=== PATIENT | female | born 2000 | race Two or more races ===

== ENCOUNTER 2022-07-13 12:50 | Emergency (ER) | payer MEDICAID, OTHER ==
[~2022-07-13] VITALS: Ht 165.1 cm; Wt 72.0 kg
[~2022-07-13 12:50] MED LIST: ANTI14DR4 RIGHT EAR
[2022-07-13 13:03] VITALS: BP 117/80
[2022-07-13] MEDS ORDERED: bacitracin 15gm ointment TP ONE (14:30)
== END 2022-07-13 15:06 | disposition home or self-care (01) ==
LOC: ER 12:51
DX: S80.212A Abrasion, left knee, initial encounter (principal); V19.9XXA Pedal cyclist (driver) (passenger) injured in unspecified traffic accident, initial encounter; Y93.89 Activity, other specified; Y92.89 Other specified places as the place of occurrence of the external cause; Y99.8 Other external cause status
CPT/HCPCS: 99282; A6449

== ENCOUNTER 2024-05-11 13:15 | Emergency (ER) | payer MEDICAID ==
[~2024-05-11] VITALS: Ht 152.4 cm; Wt 95.5 kg
[~2024-05-11 13:15] MED LIST changes: -ANTI14DR4 RIGHT EAR; +DIVA250T8 PO; +NO HOME MEDS; +PALI3TAB5 PO
[2024-05-11] MEDS: diphenhydrAMINE 50 mg/ml inj IM ONE (14:29)
[2024-05-11] MEDS: haloperidol lactate 5mg/ml inj IM ONE (14:30)
[2024-05-11] MEDS: LORazepam 2 mg/ml vial IM ONE (14:30)
[2024-05-11 14:58] LABS: BASOPHILS # (AUTO) 0.1 X10'3 (0-0.2); BASOPHILS % (AUTO) 0.8 % (0-1); EOSINOPHILS # (AUTO) 0.3 X10'3 (0-0.9); EOSINOPHILS % (AUTO) 2.5 % (0-6); HEMOGLOBIN 12.6 g/dl (12.0-16.0); LYMPHOCYTES # (AUTO) 1.9 X10'3 (1.1-4.8); LYMPHOCYTES % (AUTO) 16.3 % (21-51); MEAN CORPUSCULAR HEMOGLOBIN 29.5 PG (27.0-31.0); MEAN CORPUSCULAR HGB CONC 33.1 g/dL (33.0-36.5); MEAN CORPUSCULAR VOLUME 89.1 FL (78-98); MEAN PLATELET VOLUME 9.5 FL (7.4-10.4); MONOCYTES # (AUTO) 1.3 X10'3 (0-0.9); MONOCYTES % (AUTO) 11.3 % (2-12); NEUTROPHILS % (AUTO) 69.1 % (42-75); PLATELET COUNT 314 X10'3 (140-440); RED BLOOD COUNT 4.27 X10'6 (4.20-5.60); RED CELL DISTRIBUTION WIDTH 14.1 % (11.5-14.5); WHITE BLOOD COUNT 11.6 X10'3 (4.5-11.0)
[2024-05-11 15:20] LABS: ALBUMIN 3.9 G/DL (3.4-5.0); ANION GAP 11 (8-16); BLOOD UREA NITROGEN 13 MG/DL (7-18); BUN/CREATININE RATIO 14.8 (10.0-20.0); CALCIUM 8.4 MG/DL (8.5-10.1); CHLORIDE 105 MMOL/L (99-107); CREATININE 0.88 MG/DL (0.40-0.90); ETHANOL < 10 MG/DL (<10); GLUCOSE 115 MG/DL (70-104); POTASSIUM 3.6 MMOL/L (3.5-5.1); SODIUM 140 MMOL/L (135-145); TOTAL CARBON DIOXIDE 24.1 MMOL/L (24-32); eCRCL 70 ML/MIN; eGFR 78 ML/MIN
[2024-05-11] MEDS ORDERED: DIVA-81 PO (16:06)
[2024-05-11] MEDS ORDERED: PALI3TAB PO (16:06)
[2024-05-12] MEDS: divalproex sod 250mg ER (24-hour) tablet PO SCH (09:44)
[2024-05-12] MEDS: PALIPERIDONE 3 MG TAB.ER.24 PO SCH (09:44)
[2024-05-12] MEDS: levoTHYROXINE 75mcg tablet PO SCH (09:44)
[2024-05-12 13:37] LABS: BILIRUBIN,URINE NEGATIVE (Neg); CLARITY,URINE CLEAR (Clear); COLOR,URINE YELLOW (Yellow); GLUCOSE, URINE NEGATIVE (Neg); KETONES,URINE NEGATIVE (Neg); LEUKOCYTE ESTERASE ,URINE NEGATIVE (Neg); NITRITES, URINE NEGATIVE (Neg); OCCULT BLOOD,URINE NEGATIVE (Neg); PH,URINE 6.5 (4.8-8.0); PROTEIN,URINE NEGATIVE (Neg); UROBILINOGEN,URINE 0.2 E.U/dL (0.2-1.0)
[2024-05-12 13:41] LABS: UA COLLECTION TYPE VOIDED
[2024-05-12 13:42] LABS: URINE HCG NEGATIVE (NEG)
[2024-05-12 13:54] LABS: URINE AMPHETAMINE SCREEN NEGATIVE (Neg); URINE BARBITUATE SCREEN NEGATIVE (Neg); URINE BENZODIAZEPINES SCREEN NEGATIVE (Neg); URINE CANNABINOID SCREEN NEGATIVE (Neg); URINE COCAINE SCREEN NEGATIVE (Neg); URINE METHADONE SCREEN NEGATIVE (Neg); URINE OPIATE SCREEN NEGATIVE (Neg); URINE PHENCYCLIDINE SCREEN NEGATIVE (Neg)
[2024-05-12] MEDS: LORazepam 1 MG tablet PO ONE (18:55)
[2024-05-12] MEDS: OLANZapine 5mg rapidly disint. tablet PO ONE (18:56)
[2024-05-13] MEDS: LORazepam 1 MG tablet PO ONE (20:50)
[2024-05-13] MEDS: OLANZapine 5mg rapidly disint. tablet PO ONE (20:51)
[2024-05-14 05:31] VITALS: BP 112/64; PULSE 84; TEMP 96.8; O2SAT 99
[2024-05-14 08:05] VITALS: RESP 16
[2024-05-14 16:56] LABS: FREE T4 (FREE THYROXINE) 0.87 NG/DL (0.73-1.40)
== END 2024-05-14 17:55 ==
LOC: ER 13:16
DX: F20.1 Disorganized schizophrenia (principal); E03.9 Hypothyroidism, unspecified; F22 Delusional disorders; Z20.822 Contact with and (suspected) exposure to COVID-19; Z79.899 Other long term (current) drug therapy
CPT/HCPCS: 36415; 80048; 80305; 80320; 81003; 81025; 84439; 84443; 85025; 87811; 93005; 96372; 99285; J1200; J1630; J2060

== ENCOUNTER 2024-07-07 19:27 | Emergency (ER) | payer MEDICAID ==
[~2024-07-07] VITALS: Ht 165.1 cm; Wt 97.3 kg
[~2024-07-07 19:27] MED LIST changes: +DIVA-81 PO; -NO HOME MEDS; +PALI3TAB PO
[2024-07-07 19:54] LABS: BASOPHILS % (AUTO) 0.6 % (0-1); EOSINOPHILS % (AUTO) 0.6 % (0-6); HEMATOCRIT 37.7 % (35.0-45.0); HEMOGLOBIN 12.7 g/dl (12.0-16.0); LYMPHOCYTES # (AUTO) 1.5 X10'3 (1.1-4.8); LYMPHOCYTES % (AUTO) 21.9 % (21-51); MEAN CORPUSCULAR HEMOGLOBIN 29.6 PG (27.0-31.0); MEAN CORPUSCULAR HGB CONC 33.6 g/dL (33.0-36.5); MEAN CORPUSCULAR VOLUME 88.3 FL (78-98); MEAN PLATELET VOLUME 9.5 FL (7.4-10.4); MONOCYTES # (AUTO) 0.7 X10'3 (0-0.9); NEUTROPHILS # (AUTO) 4.7 X10'3 (1.8-7.7); NEUTROPHILS % (AUTO) 66.9 % (42-75); PLATELET COUNT 202 X10'3 (140-440); RED BLOOD COUNT 4.27 X10'6 (4.20-5.60); RED CELL DISTRIBUTION WIDTH 14.4 % (11.5-14.5)
[2024-07-07 20:17] LABS: SALICYLATE 1.5 MG/DL (4.0-20.0); THYROID STIMULATING HORMONE 2.96 ulU/ml (0.34-4.50)
[2024-07-07] MEDS ORDERED: PALI6TAB PO (20:19)
[2024-07-07 20:20] LABS: ACETAMINOPHEN < 2.0 UG/ML (10-30)
[2024-07-07 20:21] LABS: ETHANOL < 10 MG/DL (<10)
[2024-07-07 20:27] LABS: URINE HCG NEGATIVE (NEG)
[2024-07-07 20:28] LABS: BILIRUBIN,URINE SMALL (Neg); CLARITY,URINE CLEAR (Clear); COLOR,URINE YELLOW (Yellow); GLUCOSE, URINE NEGATIVE (Neg); KETONES,URINE 40 mg/dl (Neg); LEUKOCYTE ESTERASE ,URINE NEGATIVE (Neg); NITRITES, URINE NEGATIVE (Neg); OCCULT BLOOD,URINE TRACE-INTACT (Neg); PH,URINE 6.5 (4.8-8.0); PROTEIN,URINE NEGATIVE (Neg); UROBILINOGEN,URINE 0.2 E.U/dL (0.2-1.0)
[2024-07-07 20:43] LABS: UA COLLECTION TYPE NON-SPECIFIED; URINE AMPHETAMINE SCREEN NEGATIVE (Neg); URINE BARBITUATE SCREEN NEGATIVE (Neg); URINE BENZODIAZEPINES SCREEN NEGATIVE (Neg); URINE CANNABINOID SCREEN NEGATIVE (Neg); URINE COCAINE SCREEN NEGATIVE (Neg); URINE METHADONE SCREEN NEGATIVE (Neg); URINE OPIATE SCREEN NEGATIVE (Neg); URINE PHENCYCLIDINE SCREEN NEGATIVE (Neg)
[2024-07-07 20:44] LABS: BACTERIA,URINE FEW /HPF (Neg); RBC,URINE 0-2 /HPF (0-2); SQUAMOUS EPITHELIAL CELL,UR FEW /LPF (FEW); WBC,URINE 0-4 /HPF (0-4)
[2024-07-07 23:15] VITALS: BP 113/76; PULSE 72; TEMP 97.4; O2SAT 99
[2024-07-08 06:48] VITALS: RESP 16
== END 2024-07-08 10:20 | disposition home or self-care (01) ==
LOC: ER 19:28
DX: R45.851 Suicidal ideations (principal); R44.0 Auditory hallucinations; R44.1 Visual hallucinations; Z79.899 Other long term (current) drug therapy; Z20.822 Contact with and (suspected) exposure to COVID-19
CPT/HCPCS: 36415; 80305; 80320; 80329; 81001; 81025; 84443; 85025; 87811; 99285

== ENCOUNTER 2024-09-03 01:10 | Emergency (ER) | payer MEDICAID ==
[~2024-09-03] VITALS: Ht 165.1 cm; Wt 97.6 kg
[~2024-09-03 01:10] MED LIST changes: -DIVA250T8 PO; -PALI3TAB PO; -PALI3TAB5 PO; +PALI6TAB PO
[2024-09-03 01:16] VITALS: TEMP 98.4
--- NOTE | 2024-09-03 03:42 | Physician Documentation ---
History of Present Illness ~ Chief Complaint: Hallucinations Stated Complaint: PANIC ATTACK/SI Time Seen by MD: 03:29 OK to notify your PCP?: Yes Primary Medical Doctor: NONE Source: patient, RN/, RN notes reviewed, old records Mode of Arrival: Dropped Off, Police Exam Limitations: no limitations HPI 24 year old female, with a history of schizophrenia, bipolar disorder, anxiety, and depression, dropped off at the ED by police due to concerns of hallucinations. Patient reports that either her family or neighbor called the police to have her evaluated because they were concerned. Patient initially reported auditory hallucinations telling her to hit herself. She continues to have auditory hallucinations but currently she feels safe and does not feel like a danger to herself or others; she denies suicidal or homicidal ideation. She does not admit to not wanting to take her medications because she does not like how they make her feel, and they do not seem to help her. Currently she feels safe to go home and wants to follow up with mental health in two days. She understands to return if symptoms worsen. Medication Reconciliation Allergies: Coded Allergies: No Known Allergies (Unverified , 09/03/24) Scheduled Divalproex Sodium ER* (Depakote ER*), 1 TAB PO Q12H, (Reported) Paliperidone (Invega), 1 TAB PO QAM, (Reported) Past Medical History Past Medical History: Anxiety, Bipolar, Depression, Schizophrenia Past Surgical History: no surgical history Patient History: FH: diabetes mellitus Alcohol Use: None Drug Use: none Lives with: Family Lives In: Home Occupation: student Review of Systems All Other Systems at this time: Reviewed and Negative ROS As stated above in the HPI, otherwise all systems are reviewed and negative. Physical Exam Vital Signs: RN Vital Signs have been reviewed: Yes, Temperature: 98.4, Source: Temporal, Heart Rate: 99, Respiratory Rate: 16, BP: 154/100, Pulse Oximetry: 98, Weight: 97.600 Oxygen Flow Rate: 0 Pulse Oximetry Reflects: adequate oxygenation Physical Exam General: The patient is well developed, well nourished, nontoxic appearing and is in no acute distress. Skin: [place], warm and dry with no rashes. HEENT: Head was normocephalic and atraumatic. Chest: Clear to auscultation bilaterally without wheezes, rales or rhonchi. No accessory muscle use. No dullness to percussion. Heart: Rate regular and rhythmic. S1, S2. No murmurs. Palpation of the chest wall was normal. No rubs or thrills. Extremities: No cyanosis, clubbing or edema. The patient moves all extremities. Pulses were equal and symmetric. Neurologic: Motor and sensation grossly intact. Cranial nerves II-XII grossly intact. A & O x4. Psychologic: Labile affect, tearful, laughing, cooperative. Distracted thoughts. Auditory and visual hallucinations. Responding to internal stimuli. No SI or HI. No agitation. Progress Results/Orders Results/Orders Vital Signs 09/03/24 09/03/24 09/03/24 01:16 01:50 01:50 Temp 98.4 Pulse 110 99 Resp 20 16 B/P (MAP) 141/100 154/100 (118) Pulse Ox 97 98 O2 Flow Rate 0 0 Medical Decision Making Additional info obtained from: old records Departure Time of Disposition: 03:49 Disposition: HOME / SELF CARE / HOMELESS Impression: Primary Impression: Hallucinations Additional Impression: General medical exam Condition: Stable Discharge Instructions: Psychosis Additional Instructions: Follow up with mental health on Thursday as discussed. Please take your medications. Return to the ER for suicidal ideation, thoughts of harming others, or any other concerns. Education Educated: Patient Educated regarding: diagnosis, treatment, need for follow up Signature Scribe Signature: Scribed for Ion Cruz MD by Ken Connolly . 09/03/24 03:49 Attestation: The note accurately reflects work and decisions made by me.Ion Cruz MD 09/03/24 03:42 ION CRUZ MD September 03, 2024 03:42 KEN KATZ September 03, 2024 03:50
[2024-09-03] MEDS: QUEtiapine 25mg tablet PO SCH (03:59)
[2024-09-03] MEDS: QUEtiapine 25mg tablet PO STA (04:03)
[2024-09-03 04:07] VITALS: BP 142/89; PULSE 96; RESP 16; O2SAT 100
== END 2024-09-03 04:08 | disposition home or self-care (01) ==
LOC: ER 01:12
DX: R44.0 Auditory hallucinations (principal); R44.1 Visual hallucinations; F41.0 Panic disorder [episodic paroxysmal anxiety]; F32.A Depression, unspecified; Z79.899 Other long term (current) drug therapy
CPT/HCPCS: 99283

== ENCOUNTER 2024-11-06 13:15 | Emergency (ER) | payer MEDICAID ==
[~2024-11-06] VITALS: Ht 165.1 cm; Wt 98.0 kg
[2024-11-06 13:28] VITALS: TEMP 98.2
--- NOTE | 2024-11-06 14:00 | Physician Documentation ---
History of Present Illness ~ Chief Complaint: Anxiety Stated Complaint: ANXIETY Time Seen by MD: 13:35 Primary Medical Doctor: ALYCE HPI Patient is seen today with complaints of acute anxiety attack that started just 30 minutes prior to arrival. Patient admits to history of depression and anxiety but denies any suicidal or homicidal ideation. Patient denies any chest pain or shortness of breath or abdominal pain or nausea, vomiting, diarrhea. Patient has no other concern or complaint at this time. Patient states her symptoms has actually almost completely resolved and now feels 90% better. She has no other concern or complaint at this time. Medication Reconciliation Allergies: Coded Allergies: No Known Allergies (Unverified , 09/03/24) Scheduled Divalproex Sodium ER* (Depakote ER*), 1 TAB PO Q12H, (Reported) Paliperidone (Invega), 1 TAB PO QAM, (Reported) Past Medical History Past Medical History: Anxiety, Bipolar, Depression, Schizophrenia Past Surgical History: no surgical history Last Menstrual Period: Nov 06, 2024 Patient History: FH: diabetes mellitus Alcohol Use: None Drug Use: none Lives with: Family Lives In: Home Occupation: student Review of Systems Constitutional: Denies: chills, fever, weakness Eyes: Denies: pain, blurred vision ENT: Denies: ear pain, nose pain, throat pain, mouth pain Respiratory: Denies: cough, shortness of breath Cardiovascular: Denies: chest pain, palpitations Gastrointestinal: Denies: abdominal pain, nausea, vomiting Genitourinary: Denies: burning, dysuria Female Genitalia: Denies: vaginal discharge, pelvic pain Neurological: Denies: headache, dizziness Musculoskeletal: Denies: pain, swelling Integumentary: Denies: rash, lesions Allergic/Immunologic: Denies: hives, itching Hematologic/Lymphatic: Denies: no symptoms reported Psychiatric: Denies: depression, anxiety Physical Exam Vital Signs: Temperature: 98.2, Source: Temporal, Heart Rate: 100, Respiratory Rate: 16, BP: 123/84, Pulse Oximetry: 98, Weight: 98.000 Oxygen Flow Rate: 0 Physical Exam General: Awake and Alert, no acute distress. HEENT: Conjunctiva pink, Sclera clear, Mucus Membranes moist. Neck: Supple without masses and tenderness. Resp: Unlabored. Lungs clear to auscultation bilaterally. Heart: Regular Rate and rhythm, normal S1 and S2 without murmur, rub or gallop. Abdomen: Soft and non tender no organomegaly Extremities: No cyanosis,clubbing or edema. Skin: Warm and Dry. Progress Results/Orders Results/Orders Vital Signs 11/06/24 13:28 Temp 98.2 Pulse 100 Resp 16 B/P (MAP) 123/84 Pulse Ox 98 O2 Flow Rate 0 Medical Decision Making Findings Patient is seen today with complaints of acute anxiety attack that started just 30 minutes prior to arrival. Patient admits to history of depression and anxiety but denies any suicidal or homicidal ideation. Patient denies any chest pain or shortness of breath or abdominal pain or nausea, vomiting, diarrhea. Patient has no other concern or complaint at this time. Patient states her symptoms has actually almost completely resolved and now feels 90% better. She has no other concern or complaint at this time. Patient is now asymptomatic. Patient will follow up with primary care in 2-5 days if no better as needed sooner. Return to ED with any worsening, concerning or changing symptoms. Patient will follow up for referral to psychiatry for further eval and treatment. Departure Disposition: HOME / SELF CARE / HOMELESS Impression: Primary Impression: Anxiety Additional Impression: Anxiety attack Condition: Improved Discharge Instructions: Panic Attack Additional Instructions: Patient is now asymptomatic. Patient will follow up with primary care in 2-5 days if no better as needed sooner. Return to ED with any worsening, concerning or changing symptoms. Patient will follow up for referral to psychiatry for further eval and treatment. Referrals: NO PRIMARY CARE PROVIDER (PCP) Signature Scribe Signature: No scribe Attestation: No scribe AARON RUBI PAC Nov 06, 2024 14:00
[2024-11-06 14:27] VITALS: BP 112/92; PULSE 98; RESP 15; O2SAT 99
== END 2024-11-06 14:25 | disposition home or self-care (01) ==
LOC: ER 13:15
DX: F41.0 Panic disorder [episodic paroxysmal anxiety] (principal); F20.9 Schizophrenia, unspecified; F31.9 Bipolar disorder, unspecified; F41.9 Anxiety disorder, unspecified
CPT/HCPCS: 99283

== ENCOUNTER 2024-12-04 04:37 | Emergency (ER) | payer MEDICAID ==
[~2024-12-04] VITALS: Ht 167.6 cm; Wt 99.5 kg
[2024-12-04] MEDS: haloperidol lactate 5mg/ml inj IM ONE (05:25)
--- NOTE | 2024-12-04 05:34 | Physician Documentation ---
History of Present Illness ~ Chief Complaint: Mental Health Eval Stated Complaint: MH EVAL Time Seen by MD: 05:33 OK to notify your PCP?: Yes Primary Medical Doctor: NONE Source: patient, family, RN/MD, RN notes reviewed Mode of Arrival: POV, Ambulatory Exam Limitations: clinical condition HPI 24 year old female with a history of schizophrenia seen in bed 13 presents to the emergency department for complaints of a mental health evaluation. Patient was brought in by her father who was worried because the patient has been hitting herself and screaming how she wants to kill herself. Additionally patient has been screaming and crying out various other phrases revolving around her familial relations. Patients father states that she has been compliant with her medications. Medication Reconciliation Allergies: Coded Allergies: No Known Allergies (Unverified , 09/03/24) Scheduled Divalproex Sodium ER* (Depakote ER*), 1 TAB PO Q12H, (Reported) Paliperidone (Invega), 1 TAB PO QAM, (Reported) Past Medical History Past Medical History: Anxiety, Bipolar, Depression, Schizophrenia Past Surgical History: no surgical history Patient History: FH: diabetes mellitus Alcohol Use: None Drug Use: none Lives with: Family Lives In: Home Occupation: student Review of Systems All Other Systems at this time: Reviewed and Negative ROS As stated above in the HPI, otherwise all systems are reviewed and negative. Physical Exam Vital Signs: RN Vital Signs have been reviewed: Yes, Temperature: 97.8, Source: Temporal, Heart Rate: 76, Respiratory Rate: 16, BP: 132/98, Pulse Oximetry: 99, Weight: 99.450 Oxygen Flow Rate: 0 Pulse Oximetry Reflects: adequate oxygenation Physical Exam General: The patient is well developed, well nourished, nontoxic appearing and is in no acute distress. Skin: [place], warm and dry with no rashes. HEENT: Head was normocephalic and atraumatic. Eyes - pupils equal, round, reactive to light and accommodation. Extraocular movements were intact. Conjunctivae were nonicteric. Ears - bilateral tympanic membranes were normal. The mouth and oropharynx were clear with moist mucous membranes. There were no pharyngeal exudates or erythema. Neck: Supple and nontender. There was no jugular venous distention, lymphadenopathy, thyromegaly or masses. Chest: Clear to auscultation bilaterally without wheezes, rales or rhonchi. No accessory muscle use. No dullness to percussion. Heart: Rate regular and rhythmic. S1, S2. No murmurs. Palpation of the chest wall was normal. No rubs or thrills. Abdomen: Soft, nontender and nondistended. Positive bowel sounds. No guarding or rebound. No hepatosplenomegaly or palpable masses. Extremities: No cyanosis, clubbing or edema. The patient moves all extremities. Pulses were equal and symmetric. Neurologic: Cranial nerves II-XII were intact. Sensation was intact to light touch throughout. Motor strength was 5/5 in all four extremities. Deep tendon reflexes were intact in both upper and lower extremities. Psychologic: Patient is accompanied by father and is agitated, crying out and screaming and hitting herself. The patient was oriented to person, place and time. Progress Results/Orders Reviewed/noted all lab results: Yes Results/Orders Orders - ION CRUZ MD Med Rec (12/04/24 05:34) 1799.11 (12/04/24 05:34) Close Observation Level (12/04/24 05:34) Covid19 Binax Poc Result Entry (12/04/24 05:34) Regular Diet (12/04/24 Breakfast) Divalproex Sod Er-24 Hr Tablet (Depakote (12/04/24 08:00) Behavioral Restraints (12/04/24 05:30) Completed Orders - ION CRUZ MD Diphenhydramine Inj (Benadryl Inj.) (12/04/24 05:15) Haloperidol Lact. (Haldol) (12/04/24 05:15) Lorazepam Inj (Ativan Inj) (12/04/24 05:15) Cbc/Diff (12/04/24 05:34) Hcg, Ur Ql (12/04/24 05:34) Drug Screen, Urine (12/04/24 05:34) Ethanol (12/04/24 05:34) TSH (12/04/24 05:34) BMP (12/04/24 05:34) Ua With Microscopic (12/04/24 06:29) Medications Received in ER Medications (Trade) Dose Ordered Sig/Trung Route PRN Reason Start Time Stop Time Status Last Admin Dose Admin (Benadryl inj.) 25 mg ONCE ONCE IM 12/04/24 05:15 12/04/24 05:16 DC 12/04/24 05:25 25 MG (Haldol) 10 mg ONCE ONCE IM 12/04/24 05:15 12/04/24 05:17 DC 12/04/24 05:25 10 MG (Ativan inj) 2 mg ONCE ONCE IM 12/04/24 05:15 12/04/24 05:16 DC 12/04/24 05:25 2 MG Vital Signs 12/04/24 12/04/24 12/04/24 12/04/24 04:40 05:04 05:45 06:00 Temp 97.8 98.0 98.2 Pulse 76 96 73 Resp 18 16 16 16 B/P (MAP) 132/98 155/95 (115) 147/94 (111) Pulse Ox 99 98 98 O2 Flow Rate 0 0 0 12/04/24 06:32 Pulse 94 Resp 16 B/P (MAP) 153/96 (115) Pulse Ox 97 O2 Flow Rate 0 Laboratory Tests Test 12/04/24 05:29 12/04/24 06:29 12/04/24 07:00 SARS-CoV-2 Antigen (Rapid) Negative Urine Specimen Description Non-specified Urine Color Yellow Urine Clarity Cloudy Urine pH 6.0 Urine Specific [place] >=1.030 Urine Protein Negative Urine Glucose (UA) Negative Urine Ketones Negative Urine Occult Blood Small Urine Nitrite Negative Urine Bilirubin Negative Urine Urobilinogen 0.2 Urine Leukocyte Esterase Negative Urine RBC 3-10 Urine WBC 5-10 H Urine Squamous Epithelial Cells Many Urine Bacteria 3+ Urine Mucus Many Volume Urine Centrifuged 10 ml Urine HCG, Qualitative Negative Urine Comment Urine Opiates Screen Negative Urine Methadone Screen Negative Urine Fentanyl Screen Negative Urine Barbiturates Screen Negative Urine Phencyclidine Screen Negative Urine Amphetamines Screen Negative Urine Benzodiazepines Screen Negative Urine Cocaine Screen Negative Urine Cannabinoids Screen Positive Drug Screen Comment White Blood Count 10.7 Red Blood Count 4.46 Hemoglobin 13.2 Hematocrit 39.4 Mean Corpuscular Volume 88.3 Mean Corpuscular Hemoglobin 29.7 Mean Corpuscular Hemoglobin Concent 33.6 Red Cell Distribution Width 14.6 H Platelet Count 224 Mean Platelet Volume 9.4 Neutrophils (%) (Auto) 70.3 Lymphocytes (%) (Auto) 13.0 L Monocytes (%) (Auto) 12.3 H Eosinophils (%) (Auto) 3.7 Basophils (%) (Auto) 0.7 Neutrophils # (Auto) 7.5 Lymphocytes # (Auto) 1.4 Monocytes # (Auto) 1.3 H Eosinophils # (Auto) 0.4 Basophils # (Auto) 0.1 CBC Comment Sodium Level 137 Potassium Level 3.6 Chloride Level 105 Carbon Dioxide Level 24.4 Anion Gap 8 Blood Urea Nitrogen 10 Creatinine 0.89 Estimated GFR/1.73 m2 77 BUN/Creatinine Ratio 11.2 Glucose Level 107 H Calcium Level 8.4 L Albumin 3.5 Thyroid Stimulating Hormone (TSH) 8.45 H Chemistry Comments Ethyl Alcohol Level < 10 Re-Evaluation Re-Evaluation : Re-Evaluation: Improved Progress Patient was completely distraught acutely psychotic hitting her father. Security was at bedside. Patient received A B 52. With time she is feeling better. Laboratory work was obtained. Patient is pending medical clearance for mental health evaluation. LABORATORY WORK WAS OBTAINED. URINALYSIS SHOWS A SPECIFIC GRAVITY OF 1.030 WITH NEGATIVE LEUKOCYTE ESTERASE AND 3-10 RBCS 5-10 WBCS BUT MANY SQUAMOUS EPITHELIAL CELLS MOST LIKELY CONTAMINANT. HCG IS NEGATIVE. NO ANTIBIOTICS WILL BE GIVEN AT THIS TIME. Tox screen is positive for marijuana but negative for alcohol. CBC shows WBC 10.7 but no anemia no signs of infection. Chemistry is also within normal limits. Thyroid function is slightly elevated at 8.45. Patient is borderline hypothyroid and may need laboratory work re-evaluated. This should be done in 3-6 months. Otherwise patient is now medically cleared for mental health treatment transport and evaluation. That the patient is received antipsychotic medications she is a bit more cooperative sleeping and resting. Medical Decision Making Additional info obtained from: old records Differential Dx:Considerations: Include: Alcohol abuse, Anxiety, Bipolar disorder, Conversion disorder, Depression, Encephaloathy, Homicidal, Panic disorder, Personality disorder, Schizophrenia, Substance abuse, Suicidal, Other Departure Disposition: 30 STILL A PATIENT Impression: Primary Impression: Suicidal ideation Additional Impression: Acute psychosis Condition: Stable Discharge Instructions: Schizophrenia, Suicidal Feelings: How to Help Yourself Additional Instructions: Transfer orders for [facility]: At this time there is no evidence of an emergent medical condition that would preclude (admission/transfer) to a psychiatric unit via [facility] protocol for further psychiatric, as well as medical evaluation and treatment. At this time I have no reason to believe that transfer via [facility] would have serious medical compromise in the patient's health. Referrals: NO PRIMARY CARE PROVIDER (PCP) Education Educated: Patient, Family Educated regarding: diagnosis, treatment, prognosis, need for follow up Critical Care Note Total Time (mins): 30 Critical Care Note The very real possibility of a deterioration of this patient's condition required the highest level of my preparedness for sudden, emergent intervention. I provided critical care services, which included medication orders, frequent reevaluations of the patient's condition and response to treatment, ordering and reviewing test results, and discussing the case with various consultants. Excludes time spent performing separately billable procedures. The critical care time associated with the care of the patient was. 30 minutes restraining patient giving emergent IM medications Signature Scribe Signature: Scribed for Ion Cruz MD by Anna Connolly . 12/04/24 05:41 Attestation: The note accurately reflects work and decisions made by me.Ion Cruz MD 12/04/24 05:33 ION CRUZ MD Dec 04, 2024 05:33 ANNA GIANG Dec 04, 2024 05:41
[2024-12-04 06:00] VITALS: TEMP 98.2
[2024-12-04 06:32] VITALS: BP 153/96; PULSE 94; RESP 16; O2SAT 97
[2024-12-04 06:37] LABS: LEUKOCYTE ESTERASE ,URINE NEGATIVE (Neg); NITRITES, URINE NEGATIVE (Neg); OCCULT BLOOD,URINE SMALL (Neg); URINE HCG NEGATIVE (NEG)
[2024-12-04 06:38] LABS: UA COLLECTION TYPE NON-SPECIFIED
[2024-12-04 06:51] LABS: MUCUS STRANDS MANY /LPF (Neg); SQUAMOUS EPITHELIAL CELL,UR MANY /LPF (FEW)
[2024-12-04 06:54] LABS: URINE AMPHETAMINE SCREEN NEGATIVE (Neg); URINE BARBITUATE SCREEN NEGATIVE (Neg); URINE BENZODIAZEPINES SCREEN NEGATIVE (Neg); URINE CANNABINOID SCREEN POSITIVE (Neg); URINE COCAINE SCREEN NEGATIVE (Neg); URINE METHADONE SCREEN NEGATIVE (Neg); URINE OPIATE SCREEN NEGATIVE (Neg); URINE PHENCYCLIDINE SCREEN NEGATIVE (Neg)
[2024-12-04 07:22] LABS: MEAN PLATELET VOLUME 9.4 FL (7.4-10.4); RED CELL DISTRIBUTION WIDTH 14.6 % (11.5-14.5)
[2024-12-04 07:44] LABS: CREATININE 0.89 MG/DL (0.40-0.90); ETHANOL < 10 MG/DL (<10); TOTAL CARBON DIOXIDE 24.4 MMOL/L (24-32); eCRCL 90 ML/MIN; eGFR 77 ML/MIN
[2024-12-04] MEDS: divalproex sod 250mg ER (24-hour) tablet PO SCH (10:44)
[2024-12-04] MEDS: PALIPERIDONE 3 MG TAB.ER.24 PO SCH (10:44)
== END 2024-12-04 16:59 ==
LOC: ER 04:38
DX: R45.851 Suicidal ideations (principal); F41.9 Anxiety disorder, unspecified; F31.9 Bipolar disorder, unspecified; F20.9 Schizophrenia, unspecified; Z79.899 Other long term (current) drug therapy; Z20.822 Contact with and (suspected) exposure to COVID-19
CPT/HCPCS: 36415; 80048; 80305; 80320; 81001; 81025; 84443; 85025; 87811; 96372; 99285; J1200; J1630; J2060